=== PATIENT | male | born 1935 | race Caucasian/White ===

== ENCOUNTER 2016-06-14 08:38 | Day surgery (SDC) | payer MEDICARE ==
[~2016-06-14] VITALS: Ht 177.8 cm; Wt 94.0 kg
[2016-06-14] MEDS ORDERED: ATOR80TA PO (09:24)
[2016-06-14] MEDS ORDERED: LOSA50TA6 PO (09:24)
[2016-06-14] MEDS ORDERED: METO25TA35 PO (09:24)
[2016-06-14] MEDS ORDERED: FENTANYL PF 100 MCG/2ML ONE (09:32)
[2016-06-14 09:36] VITALS: BP 159/89
[2016-06-14] MEDS ORDERED: LABETALOL 5MG/ML, 20ML IV PRN (10:00)
[2016-06-14] MEDS ORDERED: ONDANSETRON 2MG/ML, 2ML IVPush PRN (10:00)
[2016-06-14] MEDS ORDERED: ACETAMINOPHEN 325 MG TABLET PO PRN (10:00)
[2016-06-14] MEDS ORDERED: EPHEDRINE 50 MG/ML, 1ML IVPush PRN (10:00)
[2016-06-14] MEDS ORDERED: HYDROcodone/APAP 7.5-325MG/15ML UDC PO PRN (10:00)
[2016-06-14] MEDS ORDERED: FENTANYL PF 100 MCG/2ML IV PRN (10:00)
[2016-06-14] MEDS ORDERED: PROMETHAZINE 25 MG/ML, 1ML IV PRN (10:00)
[2016-06-14] MEDS ORDERED: OXYcodone 5 MG/5 ML ORAL.SOL UDC PO PRN (10:00)
[2016-06-14] MEDS ORDERED: HYDROmorphone 1 MG/ML, 1ML IV PRN (10:00)
[2016-06-14] MEDS ORDERED: hydrALAzine 20 MG/ML, 1ML IV PRN (10:00)
[2016-06-14] MEDS ORDERED: LACTATED RINGERS 1,000 ML IV SCH (10:02)
[2016-06-14] MEDS ORDERED: PROPOFOL 10 MG/ML, 20ML ONE (10:08)
[2016-06-14] MEDS ORDERED: ONDANSETRON 2MG/ML, 2ML ONE (10:08)
[2016-06-14] MEDS ORDERED: LABETALOL 20 MG/4 ML ONE (10:08)
[2016-06-14] MEDS ORDERED: CEFAZOLIN 1,000 MG ONE (10:08)
[2016-06-14] MEDS ORDERED: DEXAMETHASONE 4 MG/ML, 1ML ONE (10:08)
[2016-06-14] MEDS ORDERED: hydrALAzine 20 MG/ML, 1ML ONE (11:35)
== END 2016-06-14 13:45 | disposition home or self-care (01) ==
LOC: OUT 08:38
PROVIDERS: ATTEND Urology
DX: N30.01 Acute cystitis with hematuria (principal); I10 Essential (primary) hypertension; E78.00 Pure hypercholesterolemia, unspecified; Z79.82 Long term (current) use of aspirin
CPT/HCPCS: 52235; 88304; 88305; 93005; J0360; J0690; J1100; J2405; J2704; J3010; J3490; J7120